=== PATIENT | male | born 1985 ===

== ENCOUNTER 2016-08-27 17:55 | Emergency (ER) | payer SELFPAY ==
--- NOTE | 2016-08-27 18:37 | DIAGNOSTIC IMAGING REPORT ---
PROCEDURE: XR MANDIBLE PARTIAL INDICATION: Submandibular dog bite. TECHNIQUE: AP and lateral views. COMPARISON: None. FINDINGS: There is a small amount of subcutaneous emphysema in the submandibular region. There is no evidence of radiopaque foreign body. IMPRESSION: 1. Soft tissue injury and subcutaneous emphysema of the submandibular region. 2. No evidence of foreign body.
--- NOTE | 2016-08-27 19:40 | ED ORDER SUMMARY ---
..... Patient: AMY VENEGAS OrderSheet [facility] VisitID: [id number] [address] [place] [address] 31y, M Registration Date/Time: 08/27/2016 ORDER SHEET Weight: 90.7 kg (stated) Allergies: Gabapentin, Lidocaine, Novocain GENERAL ORDERS: Irrigate Wounds (18:13 08/27/2016 Hai Ventura) (18:42 EHassan R.N.) Suture Set-up: (18:13 08/27/2016 Hai Ventura) (18:42 EHassan R.N.) Mandible Partial Urgent (18:16 08/27/2016 Hai Ventura) (Ack 18:18 NHouse ER Tech1) (18:33 [facility]) MEDICATION ORDERS: Augmentin PO 875 mg (NOW) (18:13 08/27/2016 Hai Ventura) (18:42 EHassan R.N.) Tdap IM 0.5 mL (NOW, per protocol) (19:43 08/27/2016 Hai Ventura) (19:58 [facility] IV FLUIDS: ORDER SHEET NOTES: [Electronically signed by Shahla Alcaraz (19:59 08/27/2016)] [Electronically signed by Huber Moss Dr. (08:58 09/04/2016)] [Electronically locked/signed by Shahla Alcaraz (19:59 08/27/2016)]
--- NOTE | 2016-08-27 19:40 | ED ORDER SUMMARY ---
..... Patient: AMY VENEGAS OrderSheet [facility] VisitID: [id number] [address] [place] [address] 31y, M Registration Date/Time: 08/27/2016 ORDER SHEET Weight: 90.7 kg (stated) Allergies: Gabapentin, Lidocaine, Novocain GENERAL ORDERS: Irrigate Wounds (18:13 08/27/2016 Hai Ventura) (18:42 EHassan R.N.) Suture Set-up: (18:13 08/27/2016 Hai Ventura) (18:42 EHassan R.N.) Mandible Partial Urgent (18:16 08/27/2016 Hai Ventura) (Ack 18:18 NHouse ER Tech1) (18:33 [facility]) MEDICATION ORDERS: Augmentin PO 875 mg (NOW) (18:13 08/27/2016 Hai Ventura) (18:42 EHassan R.N.) Tdap IM 0.5 mL (NOW, per protocol) (19:43 08/27/2016 Hai Ventura) (19:58 [facility]) IV FLUIDS: ORDER SHEET NOTES: [Electronically signed by Shahla Alcaraz (19:59 08/27/2016)] [Electronically signed by Huber Moss Dr. (08:58 09/04/2016)] [Electronically locked/signed by Shahla Alcaraz (19:59 08/27/2016)]
--- NOTE | 2016-08-27 19:40 | ED NURSING NOTES ---
Clinical Report - Nurs[facility] [address] [place] [address] 08/27/2016 17:57 Patient: AMY VENEGAS TRIAGE Triage time 1808 PM. Acuity: LEVEL 4. Chief Complaint: INJURY TO CHIN. Alert. No acute distress. SEPSIS SCREEN: Sepsis Screen. Negative (no infection suspected/documented). SHANNAN COMA SCORE: [place] Coma Scale: 15- eyes open spontaneously (4); best verbal response- oriented x 4 (5); best motor response- obeys commands (6). --18:16 Tori Shafer R.N. 18:08 08/27/16. BP: 128/57 (regular adult cuff) taken on the left arm, via an automated monitor, while sitting. HR: 99. RR: 16. O2 saturation: 99%. Temp: 98.3 F (oral). Pain level now: 01/20. --18:16 Tori Shafer R.N. Weight: 90.7 kg stated. Height/Length: 72 inches. BMI: 27.1. --18:09 Tori Shafer R.N. Medications None. --18:13 Tori Shafer R.N. Allergies Gabapentin. --18:13 Tori Shafer R.N. Lidocaine. --18:13 Tori Shafer R.N. Novocain. --18:14 Tori Shafer R.N. Medication/allergy information source: the patient. --18:16 Tori Shafer R.N. History Arrived by private vehicle. Historian: patient. ( Pt states was going outside with their dog and a neighbor dog was out without a leash and came to attack their dog. Pt tried breaking up the fight and got bitten by the dog, on the chin.). This occurred today. Occurred at home. He sustained a laceration (bite from a dog). He has had neck pain. No loss of consciousness. No headache. Treatment SET PAINTER: None. PAST MEDICAL HX: Tetanus status: unknown. Immunizations: status is unknown. SOCIAL HX: No infectious disease exposure. ABUSE ASSESSMENT: No report of abuse. SELF HARM ASSESSMENT: A self harm assessment was performed. The patient answered "no" to the question "Do you have thoughts of harming or killing yourself?" and "Have you recently had thoughts about harming or killing others?". FALL RISK ASSESSMENT: Fall risk assessment completed. No fall risk identified. NUTRITIONAL RISK ASSESSMENT: The nutritional risk assessment revealed no deficiencies. FUNCTIONAL ASSESSMENT: Functional assessment: no impairments noted. LEARNING NEEDS ASSESSMENT: The learning needs assessment revealed no barriers. SKIN INTEGRITY ASSESSMENT: Skin integrity risk assessment completed. No skin integrity risk identified. --18:16 Tori Shafer R.N. SOCIAL HX: Former smoker, end date 2009. History of heavy drug use: marijuana. Recently used drugs today. No alcohol use. No infectious disease exposure. ABUSE ASSESSMENT: No report of abuse. SELF HARM ASSESSMENT: A self harm assessment was performed. The patient answered "no" to the question "Do you have thoughts of harming or killing yourself?" and "Have you recently had thoughts about harming or killing others?". FALL RISK ASSESSMENT: Fall risk assessment completed. No fall risk identified. NUTRITIONAL RISK ASSESSMENT: The nutritional risk assessment revealed no deficiencies. FUNCTIONAL ASSESSMENT: Functional assessment: no impairments noted. LEARNING NEEDS ASSESSMENT: The learning needs assessment revealed no barriers. SKIN INTEGRITY ASSESSMENT: Skin integrity risk assessment completed. No skin integrity risk identified. --18:20 Tori Shafer R.N. PROBLEMS: Depression. Anxiety Reaction. Dyspnea. Chest Wall Pain. Immunizations. Meningitis. Dental Caries. Dental Pain. Dental Abscess. --18:13 Tori Shafer R.N. ADDITIONAL SURGERIES: ACL. Hand. Hand - right. Knee Surgery. --18:13 Tori Shafer R.N. Interventions ID band on patient. --18:16 Tori Shafer R.N. PHYSICAL ASSESSMENT Ambulatory to room. GENERAL / NEURO / PSYCH: Oriented X 4. Appears in no acute distress. HEENT: Chin: tenderness, erythema, deep 2.0 cm laceration with controlled bleeding, suspected foreign body and multiple puncture wounds of the right side and central aspect of the chin (x3 bites right lateral 0.25cm and left side at 0.25cm, central at 2 cm). No deformity. Mucous membranes are pink. RESPIRATORY: Respirations not labored. BACK: ROM normal to the neck and back. SKIN: Skin is warm and dry. --18:21 Tori Shafer R.N. NURSING PROGRESS NOTES The initial plan of care for this patient has been created This plan of care was discussed with the patient. Reassurance given. Two patient identifiers checked. Call light placed in reach. Side rails up x 1. Bed placed in lowest position. Brakes of bed on. --18:21 Tori Shafer R.N. 18:37 08/27/2016 Augmentin (Amoxicillin-Pot Clavulanate) PO Tablets 875 mg given. Allergies verified and confirmed 5 rights. --18:42 Tori Shafer R.N. Wound cleansed with sterile saline (chin). --18:49 Mary Rodrigez ER Tech1 19:58 08/27/2016 TDAP IM 0.5 mL given. (Lot#: [id number], expiration date: 04/20/2018, Delivery Man: sanofi pasteur). Given in the right deltoid. Allergies verified and confirmed 5 rights. Vaccine information statement provided to the patient. --19:58 Shahla Alcaraz. DISPOSITION / DISCHARGE Departure time: 1954. Condition at departure: improved and stable. No learning barriers present. Discharge instructions provided and reviewed with the patient. Reviewed medication(s). Patient verbalized understanding. Written instructions provided in Turkmen. The patient was discharged by the physician. He was discharged home and accompanied by epic cadence analyst. He left the Emergency Department ambulatory and via private vehicle. Receivable Clerk driving. --19:58 Shahla Alcaraz 19:59 08/27/16. BP: 126/58. HR: 78. RR: 18. O2 saturation: 99%. Pain level now 08/23. --19:59 Shahla Alcaraz. Locked/Released at 08/27/2016 19:59 by Shahla Alcaraz,
--- NOTE | 2016-08-27 19:40 | ED NURSING NOTES ---
Clinical Report - Nurses [facility] [address] [place] [address] 08/27/2016 17:57 Patient: AMY VENEGAS TRIAGE Triage time 1808 PM. Acuity: LEVEL 4. Chief Complaint: INJURY TO CHIN. Alert. No acute distress. SEPSIS SCREEN: Sepsis Screen. Negative (no infection suspected/documented). SHANNAN COMA SCORE: [place] Coma Scale: 15- eyes open spontaneously (4); best verbal response- oriented x 4 (5); best motor response- obeys commands (6). --18:16 Tori Shafer R.N. 18:08 08/27/16. BP: 128/57 (regular adult cuff) taken on the left arm, via an automated monitor, while sitting. HR: 99. RR: 16. O2 saturation: 99%. Temp: 98.3 F (oral). Pain level now: 01/20. --18:16 Tori Shafer R.N. Weight: 90.7 kg stated. Height/Length: 72 inches. BMI: 27.1. --18:09 Tori Shafer R.N. Medications None. --18:13 Tori Shafer R.N. Allergies Gabapentin. --18:13 Tori Shafer R.N. Lidocaine. --18:13 Tori Shafer R.N. Novocain. --18:14 Tori Shafer R.N. Medication/allergy information source: the patient. --18:16 Tori Shafer R.N. History Arrived by private vehicle. Historian: patient. ( Pt states was going outside with their dog and a neighbor dog was out without a leash and came to attack their dog. Pt tried breaking up the fight and got bitten by the dog, on the chin.). This occurred today. Occurred at home. He sustained a laceration (bite from a dog). He has had neck pain. No loss of consciousness. No headache. Treatment MD PSYCHIATRY: None. PAST MEDICAL HX: Tetanus status: unknown. Immunizations: status is unknown. SOCIAL HX: No infectious disease exposure. ABUSE ASSESSMENT: No report of abuse. SELF HARM ASSESSMENT: A self harm assessment was performed. The patient answered "no" to the question "Do you have thoughts of harming or killing yourself?" and "Have you recently had thoughts about harming or killing others?". FALL RISK ASSESSMENT: Fall risk assessment completed. No fall risk identified. NUTRITIONAL RISK ASSESSMENT: The nutritional risk assessment revealed no deficiencies. FUNCTIONAL ASSESSMENT: Functional assessment: no impairments noted. LEARNING NEEDS ASSESSMENT: The learning needs assessment revealed no barriers. SKIN INTEGRITY ASSESSMENT: Skin integrity risk assessment completed. No skin integrity risk identified. --18:16 Tori Shafer R.N. SOCIAL HX: Former smoker, end date 2009. History of heavy drug use: marijuana. Recently used drugs today. No alcohol use. No infectious disease exposure. ABUSE ASSESSMENT: No report of abuse. SELF HARM ASSESSMENT: A self harm assessment was performed. The patient answered "no" to the question "Do you have thoughts of harming or killing yourself?" and "Have you recently had thoughts about harming or killing others?". FALL RISK ASSESSMENT: Fall risk assessment completed. No fall risk identified. NUTRITIONAL RISK ASSESSMENT: The nutritional risk assessment revealed no deficiencies. FUNCTIONAL ASSESSMENT: Functional assessment: no impairments noted. LEARNING NEEDS ASSESSMENT: The learning needs assessment revealed no barriers. SKIN INTEGRITY ASSESSMENT: Skin integrity risk assessment completed. No skin integrity risk identified. --18:20 Tori Shafer R.N. PROBLEMS: Depression. Anxiety Reaction. Dyspnea. Chest Wall Pain. Immunizations. Meningitis. Dental Caries. Dental Pain. Dental Abscess. --18:13 Tori Shafer R.N. ADDITIONAL SURGERIES: ACL. Hand. Hand - right. Knee Surgery. --18:13 Tori Shafer R.N. Interventions ID band on patient. --18:16 Tori Shafer R.N. PHYSICAL ASSESSMENT Ambulatory to room. GENERAL / NEURO / PSYCH: Oriented X 4. Appears in no acute distress. HEENT: Chin: tenderness, erythema, deep 2.0 cm laceration with controlled bleeding, suspected foreign body and multiple puncture wounds of the right side and central aspect of the chin (x3 bites right lateral 0.25cm and left side at 0.25cm, central at 2 cm). No deformity. Mucous membranes are pink. RESPIRATORY: Respirations not labored. BACK: ROM normal to the neck and back. SKIN: Skin is warm and dry. --18:21 Tori Shafer R.N. NURSING PROGRESS NOTES The initial plan of care for this patient has been created This plan of care was discussed with the patient. Reassurance given. Two patient identifiers checked. Call light placed in reach. Side rails up x 1. Bed placed in lowest position. Brakes of bed on. --18:21 Tori Shafer R.N. 18:37 08/27/2016 Augmentin (Amoxicillin-Pot Clavulanate) PO Tablets 875 mg given. Allergies verified and confirmed 5 rights. --18:42 Tori Shafer R.N. Wound cleansed with sterile saline (chin). --18:49 Mary Rodrigez ER Tech1 19:58 08/27/2016 TDAP IM 0.5 mL given. (Lot#: [id number], expiration date: 04/20/2018, Automobile Upholsterer Apprentice: sanofi pasteur). Given in the right deltoid. Allergies verified and confirmed 5 rights. Vaccine information statement provided to the patient. --19:58 Shahla Alcaraz. DISPOSITION / DISCHARGE Departure time: 1954. Condition at departure: improved and stable. No learning barriers present. Discharge instructions provided and reviewed with the patient. Reviewed medication(s). Patient verbalized understanding. Written instructions provided in Italian. The patient was discharged by the physician. He was discharged home and accompanied by mechanical detailer. He left the Emergency Department ambulatory and via private vehicle. Director Airport driving. --19:58 Shahla Alcaraz 19:59 08/27/16. BP: 126/58. HR: 78. RR: 18. O2 saturation: 99%. Pain level now 08/23. --19:59 Shahla Alcaraz. Locked/Released at 08/27/2016 19:59 by Shahla Alcaraz,
--- NOTE | 2016-08-27 19:42 | ED CLINICAL REPORT ---
Clinical Report - Physicians/Mid Levels [facility] [address] [place] [address] 08/27/2016 17:57 Patient: AMY VENEGAS Arrived- By private vehicle. Historian- patient. HISTORY OF PRESENT ILLNESS Location of injuries- chin. Chief Complaint: DOG BITE. The injury occurred today. The animal reportedly appeared well and the immunization status of the animal is unknown. Animal control has been notified. Occurred at home. This was an "unprovoked" attack. No skin rash. Treatment SERVICE TEAM LEADER- none. REVIEW OF SYSTEMS No difficulty breathing or chest pain. All systems otherwise negative, except as recorded above. PAST HISTORY See nurses notes. Medications: None. Allergies: Gabapentin. Lidocaine. Novocain. SOCIAL HISTORY Never smoker. No alcohol use or drug use. Is a local resident. ADDITIONAL NOTES The nursing notes have been reviewed. PHYSICAL EXAM Vital Signs: 08/27/2016 18:08 BP: 128/57. HR: 99. RR: 16. O2 saturation: 99%. Temp: 98.3 F. Pain level now: 7/10. Blood pressure normal. Oxygen saturation normal. Appearance: Alert. Oriented X3. No acute distress. Head: Head normal on inspection and non-tender. No Hernandez's sign or raccoon eyes. (chin lacerations that are scattered to the interior aspect. Three are < 1 cm, one is "s" shaped and 4 cm. All are full thickness with subq tissue esposed. no bone exposed. no FB.). Eyes: Pupillary exam: Right pupil round and reactive to light directly and consensually and with accommodation. Left pupil: 3mm, round and reactive to light directly and consensually and with accommodation. Eyes normal inspection. ENT: Ears normal on inspection. Nose normal on inspection. Mouth normal on inspection. No hemotympanum. Neck: Normal inspection. No decreased ROM or muscle spasm in the neck. No pain with movement of head/neck. Neck non-tender. Painless ROM. No vertebral tenderness. CVS: Heart sounds normal. Pulses normal. Respiratory: Chest normal on inspection. Breath sounds normal. Chest nontender. Abdomen: Normal inspection. Soft and nontender. Bowel sounds normal. Skin: Skin intact. Skin warm and dry. Normal skin color. Normal skin turgor. Extremities: Normal inspection. Pelvis stable. Extremities atraumatic. No lower extremity edema. LABS, X-RAYS, AND EKG Mandible X-rays: No fracture present. No foreign body. No air fluid levels present. No bony lesion. (No acute osseous other maladies. No bony antibodies. No retained foreign bodies). Views: AP and lateral. The X-rays were independently viewed by me and interpreted contemporaneously by me. PROGRESS AND PROCEDURES Laceration Repair: Wound depth/shape- subcutaneous. Distal neuro/vascular/tendon status normal. Anesthesia provided (benadryl 4 mL of 50mg/10mL). Prepped with Hibiclens. Wound explored and examined to the base in bloodless field extensively with normal saline. Closure of skin: interrupted 6-0 nylon (7 stitches total). Post-procedure: he is stable and there are no complications. Bleeding is controlled and neuro-vascular status is intact distal to the wound. Dressing applied. Tetanus immunization given. Course of Care: he patient is a 31-year-old male presenting for evaluation of dog bite to the face. Patient has no active bleeding at this time. Wounds appear to be agreeable to suturing. Because of the patient's dog bite, we'll evaluate also for retained foreign bodies. No noted abnormal findings on examination at this time. Patient is agreeable to the treatment and plan. Wound was closed withsutures. Loose approximation was used as to decrease the risk of infection. The patient tolerated procedure well. Antibiotics will be provided for wound reduction risk. Patient is agreeable to the treatment plan. No other acute abnormalities noted. I discussed the patient workup, diagnosis, home care, follow-up, and return precautions. All questions answered. Patient expressed understanding of these instructions and is agreeable to them. Furthermore, discussed with patient wound infection risk and reasons to return to the emergency department. Was able to contact patient's mother. I now recall the patient states that he does not want to take the antibiotic. Mother states the wound is healing well and there is no infection. Disposition: Discharged. Condition: good. CLINICAL IMPRESSION 08/27/2016 18:08 BP: 128/57. HR: 99. RR: 16. O2 saturation: 99%. Temp: 98.3 F. Pain level now: 7/10. Blood pressure normal. Oxygen saturation normal. Multiple deep lacerations to the chin. Dog bite (chin). INSTRUCTIONS (Keep dry for first 24 hours. May wash with gentle soap and warm water afterwards. Stitches come out in 5 - 7 days). Warnings: GENERAL WARNINGS: Return or contact your physician immediately if your condition worsens or changes unexpectedly, if not improving as expected, or if other problems arise. Specifically return if pain, vomiting, bleeding, breathing difficulty or fever. redness, swelling, draining pus, or other concerns. Your Current Medications: CONTINUE TAKING THE FOLLOWING MEDICATIONS: None*. OTC Medications: Acetaminophen (available over the counter): take according to label instructions. Motrin (available over the counter): take according to label instructions. Follow-up: Return to the emergency department as needed. Screening today revealed the patient's blood pressure to be in the normal range. The patient should follow up with a primary care provider for blood pressure management. Understanding of the discharge instructions verbalized by patient. (Electronically signed by Huber Moss Dr. 09/04/2016 8:58) Addenda for AMY VENEGAS VisitID: [id number] Date: 08/27/2016 09/01/2016 18:13 Called back to check on patient. Abx not printed out on his stay here in the emergency department. Will call in prescription for Augmentin. Message left on answering machine to call back on my personal cell phone. (Electronically signed by Huber Moss Dr. - 09/01/2016 18:13) 09/02/2016 8:59 attempted to call. number disconnected. will mail prescription. (Electronically signed by Huber Moss Dr. - 09/02/2016 8:59) 09/02/2016 9:04 spoke to patient's mother. patient's phone is disconnected. mother will try to contact patient through a friend. (Electronically signed by Huber Moss Dr. - 09/02/2016 9:04)
--- NOTE | 2016-09-04 08:59 | ED MAR SUMMARY ---
..... Medication Administration Record [facility] [address] [place] [address] Patient: AMY VENEGAS Visit ID: [id number] 31y, M Weight: 90.7 kg Height/Length: 72 in BMI: 27.1 ALLERGIES: Gabapentin, Novocain, Lidocaine Given 18:37 08/27/2016 Tori Shafer R.N. Medication Administered: AUGMENTIN [PO] (AMOXICILLIN-POT CLAVULANATE), Dose: 875 mg Tablets PO. Medication Ordered: Augmentin PO 875 mg (NOW). Given 19:58 08/27/2016 Shahla Alcaraz, Medication Administered: TDAP [IM], Dose: 0.5 mL IM. Medication Ordered: Tdap IM 0.5 mL (NOW, per protocol).
--- NOTE | 2016-09-04 08:59 | ED MAR SUMMARY ---
..... Medication Administration Record [facility] [address] [place] [address] Patient: AMY VENEGAS Visit ID: [id number] 31y, M Weight: 90.7 kg Height/Length: 72 in BMI: 27.1 ALLERGIES: Gabapentin, Novocain, Lidocaine Given 18:37 08/27/2016 Tori Shafer R.N. Medication Administered: AUGMENTIN [PO] (AMOXICILLIN-POT CLAVULANATE), Dose: 875 mg Tablets PO. Medication Ordered: Augmentin PO 875 mg (NOW). Given 19:58 08/27/2016 Shahla Alcaraz, Medication Administered: TDAP [IM], Dose: 0.5 mL IM. Medication Ordered: Tdap IM 0.5 mL (NOW, per protocol).
--- NOTE | 2016-09-04 08:59 | ED DISCHARGE INSTRUCTIONS ---
Patient: AMY VENEGAS General Instructions [facility] VisitID: [id number] [address] [place] [address] 31y, M Registration Date/Time: 08/27/2016 08/27/2016 18:08 BP: 128/57. HR: 99. RR: 16. O2 saturation: 99%. Temp: 98.3 F. Pain level now: 7/10. Blood pressure normal. Oxygen saturation normal. Multiple deep lacerations to the chin. Dog bite (chin). INSTRUCTIONS (Keep dry for first 24 hours. May wash with gentle soap and warm water afterwards. Stitches come out in 5 - 7 days). Warnings: GENERAL WARNINGS: Return or contact your physician immediately if your condition worsens or changes unexpectedly, if not improving as expected, or if other problems arise. Specifically return if pain, vomiting, bleeding, breathing difficulty or fever. redness, swelling, draining pus, or other concerns. Your Current Medications: CONTINUE TAKING THE FOLLOWING MEDICATIONS: None*. OTC Medications: Acetaminophen (available over the counter): take according to label instructions. Motrin (available over the counter): take according to label instructions. Follow-up: Return to the emergency department as needed. Screening today revealed the patient's blood pressure to be in the normal range. The patient should follow up with a primary care provider for blood pressure management. Understanding of the discharge instructions verbalized by patient. ADDITIONAL INFORMATION Animal Bite, General If you have been bitten by an animal and the wound is deep enough to break the skin, an infection may occur. Therefore, watch for the warning signs listed below. If a cut (laceration) was present, the doctor may not close the wound completely. This is to allow fluid to drain in the event of an infection. Home Care: Watch the wound for signs of infection listed below which may begin within6 hours after the bite and progress rapidly. In certain types of bites, antibiotics may be prescribed. Begin taking these as soon as possible until they are all gone. Rabies Prevention If you live in an area where rabies occurs in the wild animals, if you were bitten by a dog, cat, skunk, raccoon, moore, coyote, bobcat, woodchuck, bat, or other meat-eating animal, there may be some risk to you of getting the rabies virus. If a healthy-looking pet dog or cat has bitten you, it should be kept in a secure area for the next 10 days to watch for signs of illness. (If the pet truckload owner operator wont cooperate with you, contact the animal control department.) If the dog or cat becomes ill or dies during that time, contact your [facility] animal control department at once so the animal may be tested for rabies. If the pet stays healthy for the next10 days, there is no danger of rabies in the animal or you. Pets fully vaccinated against rabies (2 shots) are at very low risk of infection; however, because human rabies is almost always fatal,any biting pet should be confined for10 days as an extra precaution. If astray pet bit you, contact the animal control department. They can provide information on capture, quarantine, and animal rabies testing. If you are unable to locate the animal that bit you in the next2 days, and if rabies exists in your region, you must be evaluated for the rabies vaccine series. Contact your doctor or return here promptly. All animal bites should be reported to the [facility] animal control department. If you were not given a form to fill out, you can report this yourself. Follow Up with your doctor or this facility as directed. Most skin wounds heal days. However, an infection may occur even with proper treatment. Check your wound every 6 hours for the first 2 days, then at least once a day for the next several days for the signs of infection listed below. Get Prompt Medical Attention if any of the following occur: Signs of infection: Spreading redness from the wound Increased pain or swelling Fever of 100.4F (38C) or higher, or as directed by your healthcare provider Colored fluid or pus draining from the wound Headache, confusion, strange behavior, or seizure (signs of a rabies infection) Laceration, Face (Suture Or Tape) Alaceration is a cut through the skin. This will require stitches if it is deep. Minor cuts may be treated with surgical tape. Home care The following guidelines will help you care for your laceration at home: If a bandage was applied and it becomes wet or dirty, replace it. Otherwise, leave it in place for the first 24 hours, then change it once a day or as directed. If sutures were used, clean the wound daily: After removing the bandage, wash the area with soap and water. Use a wet cotton swab to loosen and remove any blood or crust that forms. After cleaning, keep the wound clean and dry. Talk with your doctor before applying any antibiotic ointment to the wound. Reapply a fresh bandage. You may remove the bandage to shower as usual after the first 24 hours, but do not soak the area in water (no swimming) until the sutures are removed. If surgical tape was used, keep the area clean and dry. If it becomes wet, blot it dry with a towel. The doctor may prescribe an antibiotic cream or ointment to prevent infection. Do not stop taking this medication until you have have finished the prescribed course or the doctor tells you to stop. The doctor may also prescribe medications for pain. Follow the doctor's instructions for taking these medications.If you have chronic liver or kidney disease or ever had a stomach ulcer or GI bleeding, talk with your doctor before using these medicines. Follow-up care Follow up with your health care provider. Most facial cuts heal in five days with no problem. However, even with proper treatment, a wound infection sometimes occurs. Therefore, check the wound daily for the warning signs listed below. Stitches should not be left in the face for more thanfivedays; otherwise, permanent stitch corado may form. If surgical tape closures were used, you may remove them yourself afterfivedays, if they have not fallen off by then. When to seek medical care Get prompt medical attention if any of these occur: Increasing pain in the wound Redness, swelling, or pus coming from the wound If sutures come apart or fall out before 5 days If the surgical tape closures fall off before 5 days, or the wound edges reopen Fever of 100.4F (38C) or higher, or as directed by your health care provider Bleeding not controlled by direct pressure You have been given the following additional information: Animal Bite, General Laceration, Face (Suture Or Tape) (Electronically signed by Huber Moss Dr. 09/04/2016 8:58)
--- NOTE | 2016-09-04 08:59 | ED MED RECONCILIATION SUMMARY ---
Patient: AMY VENEGAS Medication Reconciliation Report [facility] VisitID: [id number] [address] [place] [address] 31y, M Registration Date/Time: 08/27/2016 Weight: 90.7 kg Height/Length: 72 in. BMI: 27.1 ALLERGIES: Gabapentin, Lidocaine, Novocain The patient's Home Medications are listed below: NONE. The source(s) of the original Home Medication information: patient The following Medications were given to the patient in the Emergency Department: Augmentin [PO] PO 875 mg, administered: 08/27/2016 6:37:00 PM TDAP [IM] IM 0.5 mL, administered: 08/27/2016 7:58:00 PM The following Medications were prescribed to the patient: Acetaminophen (available over the counter): take according to label instructions. -- Huber Moss Dr. Motrin (available over the counter): take according to label instructions. -- Huber Moss Dr.
--- NOTE | 2016-09-04 08:59 | ED DISCHARGE INSTRUCTIONS ---
Patient: AMY VENEGAS General Instructions [facility] VisitID: [id number] [address] [place] [address] 31y, M Registration Date/Time: 08/27/2016 08/27/2016 18:08 BP: 128/57. HR: 99. RR: 16. O2 saturation: 99%. Temp: 98.3 F. Pain level now: 7/10. Blood pressure normal. Oxygen saturation normal. Multiple deep lacerations to the chin. Dog bite (chin). INSTRUCTIONS (Keep dry for first 24 hours. May wash with gentle soap and warm water afterwards. Stitches come out in 5 - 7 days). Warnings: GENERAL WARNINGS: Return or contact your physician immediately if your condition worsens or changes unexpectedly, if not improving as expected, or if other problems arise. Specifically return if pain, vomiting, bleeding, breathing difficulty or fever. redness, swelling, draining pus, or other concerns. Your Current Medications: CONTINUE TAKING THE FOLLOWING MEDICATIONS: None*. OTC Medications: Acetaminophen (available over the counter): take according to label instructions. Motrin (available over the counter): take according to label instructions. Follow-up: Return to the emergency department as needed. Screening today revealed the patient's blood pressure to be in the normal range. The patient should follow up with a primary care provider for blood pressure management. Understanding of the discharge instructions verbalized by patient. ADDITIONAL INFORMATION Animal Bite, General If you have been bitten by an animal and the wound is deep enough to break the skin, an infection may occur. Therefore, watch for the warning signs listed below. If a cut (laceration) was present, the doctor may not close the wound completely. This is to allow fluid to drain in the event of an infection. Home Care: Watch the wound for signs of infection listed below which may begin within6 hours after the bite and progress rapidly. In certain types of bites, antibiotics may be prescribed. Begin taking these as soon as possible until they are all gone. Rabies Prevention If you live in an area where rabies occurs in the wild animals, if you were bitten by a dog, cat, skunk, raccoon, moore, coyote, bobcat, woodchuck, bat, or other meat-eating animal, there may be some risk to you of getting the rabies virus. If a healthy-looking pet dog or cat has bitten you, it should be kept in a secure area for the next 10 days to watch for signs of illness. (If the pet sales project manager wont cooperate with you, contact the animal control department.) If the dog or cat becomes ill or dies during that time, contact your [facility] animal control department at once so the animal may be tested for rabies. If the pet stays healthy for the next10 days, there is no danger of rabies in the animal or you. Pets fully vaccinated against rabies (2 shots) are at very low risk of infection; however, because human rabies is almost always fatal,any biting pet should be confined for10 days as an extra precaution. If astray pet bit you, contact the animal control department. They can provide information on capture, quarantine, and animal rabies testing. If you are unable to locate the animal that bit you in the next2 days, and if rabies exists in your region, you must be evaluated for the rabies vaccine series. Contact your doctor or return here promptly. All animal bites should be reported to the [facility] animal control department. If you were not given a form to fill out, you can report this yourself. Follow Up with your doctor or this facility as directed. Most skin wounds heal efcyfy51 days. However, an infection may occur even with proper treatment. Check your wound every 6 hours for the first 2 days, then at least once a day for the next several days for the signs of infection listed below. Get Prompt Medical Attention if any of the following occur: Signs of infection: Spreading redness from the wound Increased pain or swelling Fever of 100.4F (38C) or higher, or as directed by your healthcare provider Colored fluid or pus draining from the wound Headache, confusion, strange behavior, or seizure (signs of a rabies infection) Laceration, Face (Suture Or Tape) Alaceration is a cut through the skin. This will require stitches if it is deep. Minor cuts may be treated with surgical tape. Home care The following guidelines will help you care for your laceration at home: If a bandage was applied and it becomes wet or dirty, replace it. Otherwise, leave it in place for the first 24 hours, then change it once a day or as directed. If sutures were used, clean the wound daily: After removing the bandage, wash the area with soap and water. Use a wet cotton swab to loosen and remove any blood or crust that forms. After cleaning, keep the wound clean and dry. Talk with your doctor before applying any antibiotic ointment to the wound. Reapply a fresh bandage. You may remove the bandage to shower as usual after the first 24 hours, but do not soak the area in water (no swimming) until the sutures are removed. If surgical tape was used, keep the area clean and dry. If it becomes wet, blot it dry with a towel. The doctor may prescribe an antibiotic cream or ointment to prevent infection. Do not stop taking this medication until you have have finished the prescribed course or the doctor tells you to stop. The doctor may also prescribe medications for pain. Follow the doctor's instructions for taking these medications.If you have chronic liver or kidney disease or ever had a stomach ulcer or GI bleeding, talk with your doctor before using these medicines. Follow-up care Follow up with your health care provider. Most facial cuts heal in five days with no problem. However, even with proper treatment, a wound infection sometimes occurs. Therefore, check the wound daily for the warning signs listed below. Stitches should not be left in the face for more thanfivedays; otherwise, permanent stitch corado may form. If surgical tape closures were used, you may remove them yourself afterfivedays, if they have not fallen off by then. When to seek medical care Get prompt medical attention if any of these occur: Increasing pain in the wound Redness, swelling, or pus coming from the wound If sutures come apart or fall out before 5 days If the surgical tape closures fall off before 5 days, or the wound edges reopen Fever of 100.4F (38C) or higher, or as directed by your health care provider Bleeding not controlled by direct pressure You have been given the following additional information: Animal Bite, General Laceration, Face (Suture Or Tape) (Electronically signed by Huebr Moss Dr. 09/04/2016 8:58)
--- NOTE | 2016-09-04 08:59 | ED MED RECONCILIATION SUMMARY ---
Patient: AMY VENEGAS Medication Reconciliation Report [facility] VisitID: [id number] [address] [place] [address] 31y, M Registration Date/Time: 08/27/2016 Weight: 90.7 kg Height/Length: 72 in. BMI: 27.1 ALLERGIES: Gabapentin, Lidocaine, Novocain The patient's Home Medications are listed below: NONE. The source(s) of the original Home Medication information: patient The following Medications were given to the patient in the Emergency Department: Augmentin [PO] PO 875 mg, administered: 08/27/2016 6:37:00 PM TDAP [IM] IM 0.5 mL, administered: 08/27/2016 7:58:00 PM The following Medications were prescribed to the patient: Acetaminophen (available over the counter): take according to label instructions. -- Huber Moss Dr. Motrin (available over the counter): take according to label instructions. -- Huber Moss Dr.
== END 2016-08-27 19:55 | disposition home or self-care (01) ==
LOC: ED SRH 17:55
DX: S01.85XA Open bite of other part of head, initial encounter (principal); W54.0XXA Bitten by dog, initial encounter; Y93.9 Activity, unspecified; Y92.009 Unspecified place in unspecified non-institutional (private) residence as the place of occurrence of the external cause; Y99.9 Unspecified external cause status; Z23 Encounter for immunization